=== PATIENT | female | born 1985 ===

== ENCOUNTER 2017-08-31 14:41 | Emergency (ER) | payer MEDICAID ==
[2017-08-31 14:48] VITALS: BP 108/75; PULSE 94; RESP 16; TEMP 98.7; O2SAT 99
[2017-08-31] MEDS ORDERED: Oxycodone/Acetaminophen 5/325 mg Tab PO STA (15:16)
[2017-08-31] MEDS ORDERED: Oxycodone/Acetaminophen 5/325 mg Tab ONE (15:18)
--- NOTE | 2017-08-31 15:27 | ED PDOC ---
Lower Extremity Pain/Injury Time Seen by Provider: 08/31/17 14:48 Chief Complaint (Nursing): Lower Extremity Problem/Injury Chief Complaint (Provider): Back and Leg Pain History Per: Patient History/Exam Limitations: no limitations Onset/Duration Of Symptoms: Days (4 days ago) Current Symptoms Are (Timing): Still Present Additional Complaint(s): 32 yo female presents to the ED complaining of bilateral leg and low back pain, onset of 4 days ago. Patient reports taking Toradol from [place], but experiences no relief. Patient denies any urinary symptoms, fevers, or chills. Past Medical History Reviewed: Historical Data, Nursing Documentation, Vital Signs Vital Signs: Last Vital Signs Temp 98.7 F 08/31/17 14:44 Pulse 94 H 08/31/17 14:44 Resp 16 08/31/17 14:44 BP 108/75 08/31/17 14:44 Pulse Ox 99 08/31/17 14:44 - Medical History PMH: No Chronic Diseases - Surgical History Surgical History: No Surg Hx - Family History Family History: States: Unknown Family Hx - Social History Current smoker - smoking cessation education provided: No Ex-Smoker (has not smoked in the last 12 months): No Alcohol: None Drugs: Denies - Home Medications Home Medications: Ambulatory Orders Medication Instructions Recorded oxyCODONE/Acetaminophen [Percocet 1 ea PO Q6H PRN #10 tab 08/31/17 5/325 mg Tab] - Allergies Allergies/Adverse Reactions: Allergies Allergy/AdvReac Type Severity Reaction Status Date / Time No Known Allergies Allergy Verified 08/31/17 14:49 Review of Systems ROS Statement: Except As Marked, All Systems Reviewed And Found Negative Constitutional: Negative for: Fever, Chills Musculoskeletal: Positive for: Back Pain (lower back ), Leg Pain (bilateral ) Physical Exam - Reviewed Nursing Documentation Reviewed: Yes Vital Signs Reviewed: Yes - Physical Exam Appears: Positive for: Well, Non-toxic, No Acute Distress Head Exam: Positive for: ATRAUMATIC Skin: Positive for: Normal Color Eye Exam: Positive for: Normal appearance ENT: Positive for: Normal ENT Inspection Neck: Positive for: Normal. Negative for: Painless ROM Respiratory: Negative for: Accessory Muscle Use, Respiratory Distress Back: Positive for: Other (lower back tenderness, towards L-spine) Extremity: Positive for: Normal ROM. Negative for: Pedal Edema, Deformity Neurologic/Psych: Positive for: Alert, Oriented, Gait (walked in with steady gait on arrival). Negative for: Motor/Sensory Deficits - ECG O2 Sat by Pulse Oximetry: 99 (RA) Pulse Ox Interpretation: Normal Medical Decision Making Medical Decision Making: Time: --15:16 Impression: --low back pain with bilateral leg pain Plan: --ED Urine Dip --ED Urine Preg --Oxycodone 1 tab PO --LS Spine AP/Lat X-ray Reassess -- Pt feeling better on re-evaluation. Urine normal. X-ray withotu acute abnormalities. Scribe Attestation: Documented by Johnathan Poe acting as a scribe for Asuncion Bush MD. Disposition - Clinical Impression Clinical Impression: Back pain - Patient ED Disposition Is Patient to be Admitted: No Counseled Patient/Family Regarding: Diagnosis, Need For Followup, Rx Given - Disposition Referrals: [facility] [Outside] Disposition: Routine/Home Disposition Time: 17:05 Condition: GOOD Prescriptions: oxyCODONE/Acetaminophen [Percocet 5/325 mg Tab] 1 ea PO Q6H PRN #10 tab PRN Reason: Pain, Severe (8-10) Instructions: Low Back Pain (DC) Forms: [facility] (Danish)
--- NOTE | 2017-08-31 17:23 | RAD ---
PROCEDURE: Radiographs of the Lumbar Spine. HISTORY: low back pain, bilateral leg pain COMPARISON: None available. FINDINGS: BONES: Alignment appears satisfactory. No listhesis. No acute displaced fracture identified. DISC SPACES: Unremarkable. OTHER FINDINGS: Right upper quadrant surgical clips. Partially imaged moderate constipation. IMPRESSION: No acute displaced fracture or subluxation identified. Right upper quadrant surgical clips. Partially imaged moderate constipation.
== END 2017-08-31 17:20 | disposition home or self-care (01) ==
LOC: H.ER 14:41
DX: M54.9 Dorsalgia, unspecified (principal)

== ENCOUNTER 2018-03-12 08:27 | Day surgery (SDC) | payer OTHER ==
[2018-03-12 09:03] VITALS: BMI 21.9
[2018-03-12] MEDS ORDERED: Lactated Ringer's 500 ML IV ONE (09:11)
[2018-03-12 09:21] VITALS: O2SAT 100
[2018-03-12] MEDS ORDERED: Midazolam 2 MG/2 ML VIAL ONE (11:23)
[2018-03-12] MEDS ORDERED: Propofol 10 mg/ml Inj (20 ML) ONE ×2 (11:24→11:45)
[2018-03-12 13:03] VITALS: BP 104/72; PULSE 78; RESP 20; TEMP 97.4
== END 2018-03-12 13:34 | disposition home or self-care (01) ==
LOC: H.ENDO 08:27
PROVIDERS: ATTEND Internal Medicine Gastroenterology
DX: D50.9 Iron deficiency anemia, unspecified (principal); K31.89 Other diseases of stomach and duodenum; K29.50 Unspecified chronic gastritis without bleeding
CPT/HCPCS: 43239; 88305; J2001; J2250; J2704; J7120